=== PATIENT | female | born 1980 | race Caucasian/White ===

== ENCOUNTER 2017-02-27 12:06 | Inpatient (IN) ==
[2017-02-27] MEDS ORDERED: STADOL IV PRN ×3 (20:44)
[2017-02-27] MEDS ORDERED: PEPCID PO PRN (20:44)
[2017-02-27] MEDS ORDERED: AMBIEN PO PRN (20:44)
[2017-02-27] MEDS ORDERED: ZOFRAN IV PRN (20:44)
[2017-02-27] MEDS ORDERED: KEFZOL 1 GM/D5W 1 GM/50 ML IVPB IV PRN (20:44)
[2017-02-27] MEDS ORDERED: LR 1,000 ML IV ONE (20:44)
[2017-02-27] MEDS ORDERED: PEPCID IV PRN (20:44)
[2017-02-27] MEDS ORDERED: TYLENOL PO PRN (20:44)
[2017-02-27] MEDS ORDERED: BRETHINE SUBQ PRN (20:44)
[2017-02-27 22:41] LABS: MANUAL DIFF NEEDED? NO
[2017-02-27 22:47] LABS: BASO% 0.1 % (0.0-0.8); EOS# 0.04 X1000 (0.0-0.7); EOS% 0.4 % (0.0-10.0); HEMATOCRIT 34.6 % (37.0-47.0); HEMOGLOBIN 11.8 g/dL (12.0-16.0); IMM GRAN# 0.01 X1000 (0.0-0.04); IMM GRAN% 0.1 % (0.0-0.5); LYMPH# 2.28 X1000 (1.2-3.4); LYMPH% 21.9 % (20.5-51.1); MCH 33.3 PG (27-31); MCHC 34.1 g/dL (33-37); MCV 97.7 FL (81-99); MONO# 0.82 X1000 (0.11-0.59); MONO% 7.9 % (1.7-9.3); MPV 11.4 FL (7.4-10.4); NEUT% 69.6 % (42.2-75.2); PLT 178 X1000 (130-400); RBC 3.54 XMIL (4.2-5.4)
[2017-02-27] MEDS ORDERED: CYTOTEC PO ONE (23:00)
[2017-02-28] MEDS ORDERED: CYTOTEC PO SCH (03:00)
[2017-02-28] MEDS ORDERED: PITOCIN 30 UNITS/LR 30 UNITS/500 ML IV.SOLN ONE (03:45)
--- NOTE | 2017-02-28 04:51 | OPERATIVE NOTE ---
PROCEDURE DATE: 02/28/2017 PREDELIVERY DIAGNOSIS: Intrauterine at 40 weeks and 1 day for elective induction of labor. POSTDELIVERY DIAGNOSES: 1. Intrauterine at 40 weeks and 1 day for elective induction of labor. 2. Thick meconium stained fluid in nuchal cord x1. CONDITION: Stable. PHYSICIAN: Valentino Connolly MD ANESTHESIA: None. PROCEDURE: Vaginal delivery of a viable female infant, 6 pounds 8 ounces. I do not have 's at this time. No lacerations or tears. Placenta spontaneous and intact. Cord 3 vessels. Placenta is meconium stained. The patient is a 36-year-old 3, para 2, with estimated date of delivery of 02/27 with good care who was admitted overnight for labor induction with an unfavorable cervix. She was given Cytotec and went into immediate labor. She became complete at approximately 3:45 with a bulging bag of water. At approximately 04:00, the membranes were ruptured, she was at +3 station. With the next contraction, she pushed and crowned. The bed had previously been broken down. Infant delivered occiput anterior. Nuchal cord x1 was reduced without difficulty. The patient actually delivered the posterior shoulder first and then the baby was rotated to complete the delivery. The infant was placed on mother's abdomen. Cord was doubly clamped and cut. Care of infant taken over by nursery personnel. Cord blood was obtained. Three vessels were noted. Gentle traction on the placenta resulted in delivery after approximately 5 minutes of an intact meconium stained placenta. It was inspected and then left in the placental . The evaluation of the perineum and vagina did not reveal any lacerations, foreign material or clots. Estimated blood loss 100 mL. Expected routine . cc: MD Valentino Squires MD
[2017-02-28] MEDS ORDERED: NORCO-10 PO PRN (04:52)
[2017-02-28] MEDS ORDERED: MINERAL OIL PO PRN (04:52)
[2017-02-28] MEDS ORDERED: M-M-R II VACCINE SUBQ ONE (04:52)
[2017-02-28] MEDS ORDERED: HYDROXYZINE IM PRN (04:52)
[2017-02-28] MEDS ORDERED: CYTOTEC PO PRN (04:52)
[2017-02-28] MEDS ORDERED: PITOCIN 20 UNITS/LR 20 UNITS/1,000 ML IV.SOLN IV SCH (04:52)
[2017-02-28] MEDS ORDERED: AMBIEN PO PRN (04:52)
[2017-02-28] MEDS ORDERED: NORCO-5 PO PRN (04:52)
[2017-02-28] MEDS ORDERED: HYDROXYZINE PO PRN (04:52)
[2017-02-28] MEDS ORDERED: XYLOCAINE-MPF 1% INJ PRN (04:52)
[2017-02-28] MEDS ORDERED: BENADRYL PO PRN (04:52)
[2017-02-28] MEDS ORDERED: BENADRYL IV PRN (04:52)
[2017-02-28] MEDS ORDERED: PERI MEDS (DERMOPLAST/NUPERCAINAL/TUCKS) MISC PRN (04:52)
[2017-02-28] MEDS ORDERED: PITOCIN IM PRN (04:52)
[2017-02-28] MEDS ORDERED: PITOCIN 30 UNITS/LR 30 UNITS/500 ML IV.SOLN IV ONE (04:52)
[2017-02-28] MEDS ORDERED: BOOSTRIX VACCINE IM ONE (04:52)
[2017-02-28] MEDS: MOTRIN PO PRN ×2 (05:23→20:16)
[2017-02-28] MEDS ORDERED: PITOCIN 30 UNITS/LR 30 UNITS/500 ML IV.SOLN IV SCH (07:00)
[2017-02-28] MEDS: PRECARE PO SCH (08:54)
[2017-02-28] MEDS: PERICOLACE PO SCH (20:16)
[2017-03-01 05:52] LABS: MANUAL DIFF NEEDED? NO
[2017-03-01 06:18] LABS: BASO% 0.2 % (0.0-0.8); EOS# 0.08 X1000 (0.0-0.7); EOS% 0.7 % (0.0-10.0); HEMATOCRIT 31.9 % (37.0-47.0); HEMOGLOBIN 10.6 g/dL (12.0-16.0); IMM GRAN# 0.03 X1000 (0.0-0.04); IMM GRAN% 0.3 % (0.0-0.5); LYMPH# 2.75 X1000 (1.2-3.4); LYMPH% 24.6 % (20.5-51.1); MCH 32.9 PG (27-31); MCHC 33.2 g/dL (33-37); MCV 99.1 FL (81-99); MONO# 0.77 X1000 (0.11-0.59); MONO% 6.9 % (1.7-9.3); MPV 12.7 FL (7.4-10.4); NEUT% 67.3 % (42.2-75.2); PLT 111 X1000 (130-400); RBC 3.22 XMIL (4.2-5.4)
[2017-03-01] MEDS: PRECARE PO SCH (08:24)
[2017-03-01] MEDS: MOTRIN PO PRN (08:24)
[2017-03-01] MEDS: PERICOLACE PO SCH (20:05)
[2017-03-02] MEDS: PRECARE PO SCH (08:12)
[2017-03-02 08:39] VITALS: BP 149/85
== END 2017-03-02 11:35 | disposition home or self-care (01) ==
LOC: P.LD 20:42 → P.WC 02-28 09:31
PROVIDERS: ADMIT Obstetrics & Gynecology; ATTEND Obstetrics & Gynecology